=== PATIENT | male | born 1950 | race Caucasian/White ===

== ENCOUNTER 2020-05-06 01:39 | Inpatient (IN) | payer MEDICARE ==
[2020-05-06] VITALS (7 sets, daily range): BP systolic 126–155; BP diastolic 44–70
[~2020-05-06] VITALS: Ht 172.7 cm; Wt 105.2 kg
[2020-05-06 01:15] LABS: HEMATOCRIT 40.9 % (42.0-52.0); MEAN CELL VOLUME 94.5 fl (80.0-94.0); MEAN CORPUSCULAR HGB 30.9 pg (27.0-31.0); MEAN CORPUSCULAR HGB CONC 32.8 g/dl (33.0-37.0); MEAN PLATELET VOLUME 11.8 fl (9.6-12.3); PLATELET COUNT AUTOMATED 98 10*3/uL (130-400); RED BLOOD COUNT 4.33 10*6/uL (4.50-5.90); RED CELL DISTRI WIDTH 15.3 % (0-14.5); WHITE BLOOD COUNT 6.6 10*3/uL (4.8-10.8)
[2020-05-06 01:27] LABS: ALBUMIN 3.6 gm/dl (3.1-4.5); ALKALINE PHOSPHATASE 78 U/L (45-117); BUN 10 mg/dl (7-24); CHLORIDE 101 mmol/L (98-107); CREATININE 0.95 mg/dL (0.70-1.30); POTASSIUM 3.8 mmol/L (3.5-5.1); SGOT/AST 18 IU/L (3-35); SGPT/ALT 30 U/L (12-78); SODIUM 135 mmol/L (136-145); TOTAL PROTEIN 6.8 gm/dL (6.4-8.2)
[2020-05-06] MEDS ORDERED: ZYTIGA250 M1 PO (01:57)
[2020-05-06] MEDS ORDERED: PREDNISONE5 MG PO (01:57)
[2020-05-06] MEDS ORDERED: SIMVASTATIN40 MG PO (01:58)
[2020-05-06] MEDS ORDERED: JANTOVEN5 MG PO (01:58)
[2020-05-06] MEDS ORDERED: Ipratropium Brom3 ML NEB (02:00)
[2020-05-06] MEDS ORDERED: NORCO 5-325 TA1 EACH PO (02:01)
[2020-05-06] MEDS ORDERED: INDOMETHACIN50 MG PO (02:02)
[2020-05-06] MEDS ORDERED: ATIVAN1 MG PO (02:02)
[2020-05-06] MEDS ORDERED: METFORMIN HCL500 M2 PO (02:03)
[2020-05-06] MEDS ORDERED: CELEXA20 MG PO (02:04)
[2020-05-06] MEDS ORDERED: LOSARTAN-HCTZ1 EAC2 PO (02:04)
[2020-05-06 03:11] LABS: ACT PARTIAL THROMBO TIME 29.6 SECONDS (20.0-32.1); INTERNATIONAL NORM RATIO 1.5 (2.0-3.5)
[2020-05-06 03:40] LABS: ABG BASE EXCESS 1.2 mmol/L (-2.0-2.0); ARTERIAL BLOOD GAS PH 7.398 (7.35-7.45)
[2020-05-06] MEDS ORDERED: LUPRON DEPOT22.5 MG IM (04:30)
[2020-05-06 06:29] LABS: HEMATOCRIT 40.2 % (42.0-52.0); MEAN CORPUSCULAR HGB 31.2 pg (27.0-31.0); MEAN CORPUSCULAR HGB CONC 32.8 g/dl (33.0-37.0); MEAN PLATELET VOLUME 12.2 fl (9.6-12.3); PLATELET COUNT AUTOMATED 102 10*3/uL (130-400); RED BLOOD COUNT 4.23 10*6/uL (4.50-5.90); RED CELL DISTRI WIDTH 15.8 % (0-14.5); WHITE BLOOD COUNT 9.2 10*3/uL (4.8-10.8)
[2020-05-06 07:04] LABS: CHOLESTEROL 168 mg/dL (<200); TRIGLYCERIDES 116 mg/dl (<150); VLDL CHOLESTEROL 23 mg/dL (6-40)
[2020-05-06 07:05] LABS: HDL CHOLESTEROL 70 mg/dl (40-60); LDL CHOLESTEROL 75 mg/dL (9-159)
[2020-05-06 07:57] LABS: TOTAL CELLS COUNTED 100 #CELLS
[2020-05-06 07:58] LABS: PLATELET SUFFICIENCY LOW (NORMAL)
[2020-05-06 08:13] LABS: VITAMIN D, 25-HYDROXY 32.7 ng/mL (30-100)
[2020-05-07] VITALS: BP 133/82
[2020-05-07 08:00] VITALS: BP 135/64
[2020-05-07 12:00] VITALS: BP 134/58
[2020-05-07 16:00] VITALS: BP 128/48
[2020-05-07 20:00] VITALS: BP 139/64
[2020-05-08] VITALS: BP 124/68
[2020-05-08 06:30] LABS: BUN 18 mg/dl (7-24); CHLORIDE 104 mmol/L (98-107); POTASSIUM 4.3 mmol/L (3.5-5.1); SODIUM 137 mmol/L (136-145)
[2020-05-08 06:52] LABS: INTERNATIONAL NORM RATIO 1.1 (2.0-3.5)
[2020-05-08 08:00] VITALS: BP 137/59
[2020-05-08 12:00] VITALS: BP 130/66
[2020-05-08 16:00] VITALS: BP 134/64
[2020-05-08 20:00] VITALS: BP 144/64
[2020-05-09] VITALS: BP 136/66
[2020-05-09 08:00] VITALS: BP 130/66
[2020-05-09 12:00] VITALS: BP 134/72
[2020-05-09 14:36] LABS: ABG BASE EXCESS 3.3 mmol/L (-2.0-2.0); ARTERIAL BLOOD GAS PH 7.44 (7.35-7.45)
[2020-05-09 15:10] LABS: BASO % 0.2 % (0.0-1.0); HEMATOCRIT 41.5 % (42.0-52.0); LYMPH # 0.3 10*3/uL (1.3-4.4); MEAN CELL VOLUME 91.8 fl (80.0-94.0); MEAN CORPUSCULAR HGB CONC 33.7 g/dl (33.0-37.0); MEAN PLATELET VOLUME 12.1 fl (9.6-12.3); MONO # 0.3 10*3/uL (0.1-1.0); MONO % 5.3 % (3.0-9.0); NEUT # 5.5 10*3/uL (2.3-7.9); NEUT % 89.2 % (47.0-73.0); PLATELET COUNT AUTOMATED 125 10*3/uL (130-400); RED BLOOD COUNT 4.52 10*6/uL (4.50-5.90); RED CELL DISTRI WIDTH 15.4 % (0-14.5); WHITE BLOOD COUNT 6.2 10*3/uL (4.8-10.8)
[2020-05-09 15:24] LABS: ALBUMIN 3.5 gm/dl (3.1-4.5); ALKALINE PHOSPHATASE 72 U/L (45-117); BUN 18 mg/dl (7-24); CHLORIDE 99 mmol/L (98-107); CPK 43 U/L (39-308); CREATININE 0.98 mg/dL (0.70-1.30); LDH 209 U/L (87-241); POTASSIUM 4.3 mmol/L (3.5-5.1); SGOT/AST 22 IU/L (3-35); SGPT/ALT 55 U/L (12-78); SODIUM 132 mmol/L (136-145); TOTAL PROTEIN 6.9 gm/dL (6.4-8.2); TRIGLYCERIDES 202 mg/dl (<150)
[2020-05-09 15:38] LABS: INTERNATIONAL NORM RATIO 1.4 (2.0-3.5)
[2020-05-09 16:00] VITALS: BP 109/54; BP 134/72
[2020-05-09 20:00] VITALS: BP 137/61
[2020-05-10] VITALS: BP 130/64
[2020-05-10 06:26] LABS: BASO % 0.4 % (0.0-1.0); HEMATOCRIT 39.7 % (42.0-52.0); LYMPH # 0.3 10*3/uL (1.3-4.4); LYMPH % 10.6 % (27.0-41.0); MEAN CELL VOLUME 94.1 fl (80.0-94.0); MEAN PLATELET VOLUME 12.3 fl (9.6-12.3); MONO # 0.3 10*3/uL (0.1-1.0); MONO % 12.1 % (3.0-9.0); NEUT # 2.1 10*3/uL (2.3-7.9); NEUT % 75.1 % (47.0-73.0); PLATELET COUNT AUTOMATED 97 10*3/uL (130-400); RED BLOOD COUNT 4.22 10*6/uL (4.50-5.90); RED CELL DISTRI WIDTH 15.3 % (0-14.5); WHITE BLOOD COUNT 2.7 10*3/uL (4.8-10.8)
[2020-05-10 06:39] LABS: ALKALINE PHOSPHATASE 64 U/L (45-117); BUN 17 mg/dl (7-24); CHLORIDE 101 mmol/L (98-107); CPK 28 U/L (39-308); CREATININE 0.73 mg/dL (0.70-1.30); LDH 191 U/L (87-241); POTASSIUM 3.7 mmol/L (3.5-5.1); SGOT/AST 21 IU/L (3-35); SGPT/ALT 53 U/L (12-78); SODIUM 136 mmol/L (136-145); TOTAL PROTEIN 6.5 gm/dL (6.4-8.2)
[2020-05-10 08:00] VITALS: BP 133/70
[2020-05-10] MEDS ORDERED: DECADRON6 M1 PO (11:43)
== END 2020-05-10 13:06 | disposition home or self-care (01) | DRG 871 ==
LOC: ED 01:39 → 5E 02:23 → 4E 02:23 → EDHOLD 02:23 → 5E 02:35 → 4E 04:43
PROVIDERS: Family Medicine; Internal Medicine; Internal Medicine Critical Care Medicine; Student in an Organized Health Care Education/Training Program; ADMIT Emergency Medicine; ATTEND Emergency Medicine
DX: A41.9 Sepsis, unspecified organism (principal); U07.1 COVID-19; J18.9 Pneumonia, unspecified organism; J44.1 Chronic obstructive pulmonary disease with (acute) exacerbation; E87.1 Hypo-osmolality and hyponatremia; C79.51 Secondary malignant neoplasm of bone; R04.2 Hemoptysis; E78.5 Hyperlipidemia, unspecified; E11.65 Type 2 diabetes mellitus with hyperglycemia; C61 Malignant neoplasm of prostate; I10 Essential (primary) hypertension; Z96.642 Presence of left artificial hip joint; D53.9 Nutritional anemia, unspecified; D69.6 Thrombocytopenia, unspecified; E66.9 Obesity, unspecified; E78.00 Pure hypercholesterolemia, unspecified; E03.9 Hypothyroidism, unspecified; Z82.49 Family history of ischemic heart disease and other diseases of the circulatory system; Z68.35 Body mass index [BMI] 35.0-35.9, adult; Z79.899 Other long term (current) drug therapy